=== PATIENT | female | born 1970 | race Caucasian/White ===

== ENCOUNTER 2020-04-18 20:40 | Emergency (ER) | payer MEDICAID, SELFPAY ==
[2020-04-18 21:07] VITALS: BP 117/76; PULSE 69; RESP 18; TEMP 36.4; O2SAT 98; BMI 29.6
--- NOTE | 2020-04-18 23:27 | W.ED.EXTPRO ---
HPI - Extremity Problem General: Chief complaint: Extremity Injury, Lower Stated complaint: SORES ON FEET Time Seen by Provider: 04/18/20 23:11 Source: patient Mode of arrival: ambulatory Limitations: no limitations History of Present Illness: HPI Narrative: 50-year-old female states she is homeless and walks a lot. She states that she has chronic wounds to her feet from walking. States that the painful rates pain a 4 out of 10. She denies any other complaints. She states she is concerned they may be infected. She has had a slight drainage from them. Denies any worsening improving factors. Associated symptoms: Deny chest pain, fever(s) or rash Review of Systems Const: Denies: fever(s), chills, body aches or change in appetite Eyes: Denies: blurry vision or eye discomfort ENMT: Denies: throat pain or dental pain Card: Denies: chest pain Resp: Denies: dyspnea GI: Denies: abdominal pain, nausea, vomiting or diarrhea : Denies: dysuria Musc: Denies: neck pain or back pain Skin/Breast: Denies: rash Neuro: Denies: headache(s) Psych: Denies: depression Xander/Lymph: Denies: easy bruising All/Imm: Denies: urticaria Physical Exam Const: COMMON NORMALS: no acute distress, patient oriented x3 and healthy appearing HENMT: COMMON NORMALS: normocephalic and atraumatic HEAD & SCALP: normocephalic and atraumatic Eye: COMMON NORMALS: Equal, round and reactive pupils present and EOMs intact bilaterally PUPIL: Yes Equal, round and reactive pupils present Neck/C-Spine: COMMON NORMALS: full ROM and supple Chest: COMMONS NORMALS: normal inspection of the chest and normal palpation of entire chest wall Resp: COMMON NORMALS: normal respiratory effort, No retractions, No use of accessory muscles and clear to auscultation bilaterally AUSCULTATION: clear to auscultation bilaterally Cardio: COMMON NORMALS: regular rate, regular rhythm and No murmurs present (Cardio) RATE: regular rate RHYTHM: regular rhythm GI: COMMON NORMALS: Normal to inspection, nondistended, normoactive bowel sounds present, Soft to palpation, non-tender and no masses PALPATION: Yes Soft to palpation Extremity: COMMON NORMALS: full ROM NARRATIVE EXTREMITY EXAM: Chronic appearing wounds to bilateral feet no signs of severe infection may be a mild cellulitis Neuro: COMMON NORMALS: patient oriented x3, moves all extremities and no focal motor deficits Psych: COMMON NORMALS: mental status grossly normal, Normal thought process present and cooperative THOUGHT PROCESS: Normal thought process present Skin: COMMON NORMALS: no rashes or lesions noted and no wounds GENERAL SKIN EXAM: no rashes or lesions noted Course Vital Signs: Vital signs: Vital Signs Temperature 97.5 F L 04/18/20 21:07 Pulse Rate 69 04/18/20 23:35 Respiratory Rate 18 04/18/20 21:07 Blood Pressure 117/76 04/18/20 21:07 Pulse Oximetry 98 04/18/20 21:07 MDM - Extremity (Nontraumatic) MDM Narrative: Medical decision making narrative: Patient presents with chronic wounds of her feet. She may have a mild cellulitis but no signs of any serious infection. We will place her on Levaquin. She is to follow-up with wound care. She has no signs of osteomyelitis. Lab Data: Labs: Lab Results 04/18/20 Range/Units 23:59 WBC 3.5 L (4.0-10.0) 10^3/ uL RBC 4.52 (4.1-5.3) 10^6/u L Hgb 13.9 (11.5-15.3) g/dL Hct 44.1 (37.0-47.0) % MCV 97.6 (81-99) fL MCH 30.8 (28.0-34.0) pg MCHC 31.5 (30.0-36.0) g/dL RDW 12.6 (12.1-15.1) % Plt Count 130 (130-400) 10^3/c mm MPV 11.0 H (7.4-10.4) fL Neut % (Auto) 50.2 % Lymph % (Auto) 38.9 % Daniels % (Auto) 8.3 % Eos % (Auto) 1.4 % Baso % (Auto) 0.9 % Neut # (Auto) 1.76 L (1.8-7.7) 10^3/u L Lymph # (Auto) 1.4 (0.8-4.8) 10^3/u L Daniels # (Auto) 0.3 (0.2-0.9) 10^3/u L Eos # (Auto) 0.1 (0.0-0.8) 10^3/u L Baso # (Auto) 0.0 (0.0-0.1) 10^3/u L Nucleated RBC % (a uto) 0 % Nucleated RBCs # 0.0 /100WBC Discharge Plan Discharge Patient Disposition: Home Clinical Impression: Chronic wound of extremity Condition: Stable Prescriptions: New clindamycin HCl 300 mg capsule 300 mg PO TID 7 Days Qty: 21 RF: 0 levofloxacin 750 mg tablet 750 mg PO DAILY 7 Days RF: 0 Discharge Orders: Discharge ED (Routine); Ordered 04/19/20 Ordered By: Elisabet Martin Discharge Diet: Advance as tolerated Discharge Activity: Resume usual activity Patient Instructions: Wound Care (General) Coding Level of Care Code ED Scroll Shear Operator for Herve Fwjessy Exam Comprehensive
[2020-04-18 23:35] VITALS: PULSE 69
[2020-04-19 00:07] LABS: Basophils % 0.9 %; Eosinophils # 0.1 10^3/uL (0.0-0.8); Eosinophils % 1.4 %; Hematocrit 44.1 % (37.0-47.0); Hemoglobin 13.9 g/dL (11.5-15.3); Lymphocytes # 1.4 10^3/uL (0.8-4.8); Lymphocytes % 38.9 %; Mean Corpuscular HGB Conc 31.5 g/dL (30.0-36.0); Mean Corpuscular Hemoglobin 30.8 pg (28.0-34.0); Mean Corpuscular Volume 97.6 fL (81-99); Monocytes # 0.3 10^3/uL (0.2-0.9); Monocytes % 8.3 %; Neutrophils # 1.76 10^3/uL (1.8-7.7); Neutrophils % 50.2 %; Nucleated Red Blood Cells % 0 %; Platelet Count 130 10^3/cmm (130-400); Red Blood Count 4.52 10^6/uL (4.1-5.3); Red Cell Distribution Width 12.6 % (12.1-15.1); White Blood Count 3.5 10^3/uL (4.0-10.0)
[2020-04-19 00:59] VITALS: BP 119/78; PULSE 62; RESP 17; O2SAT 99
--- NOTE | 2020-04-21 11:37 | DCPLANNER ---
activities manager had message to schedule a follow up appointment for patient with Wound Care. activities manager called the Wound Care clinic, spoke with Barb, a follow up appointment was scheduled for Thursday, April 23, 2020 at 1:[address] Renteria. activities manager called phone number [phone] - not a working number, called [phone] - not in service, called [phone] - can not be completed. activities manager called the Wound Care clinic and cancelled appointment, patient could not be reached.
== END 2020-04-19 00:59 | disposition home or self-care (01) ==
PROVIDERS: Emergency Provider Emergency Medicine
DX: S91.302A Unspecified open wound, left foot, initial encounter (principal); S91.301A Unspecified open wound, right foot, initial encounter; X58.XXXA Exposure to other specified factors, initial encounter
CPT/HCPCS: 12345; 36415; 85025; 99281; 99282

== ENCOUNTER 2020-04-19 02:25 | Emergency (ER) | payer MEDICAID, SELFPAY ==
[2020-04-19 02:31] VITALS: BP 136/83; PULSE 80; RESP 18; TEMP 36.4; O2SAT 97; BMI 22.7
--- NOTE | 2020-04-19 02:50 | ED_ITS ---
HPI - Psych General: Chief Complaint: Psychiatric Symptoms Stated Complaint: MHE Time Seen by Provider: 04/19/20 02:42 Source: patient Mode of arrival: ambulatory Limitations: no limitations History of Present Illness: HPI Narrative: 50 female who is here with complaints of manic thoughts. I seen her earlier for chronic wounds on her feet. Patient is homeless states she walked to the soup rate and started having she states manic thoughts. She denies any suicidal homicidal thoughts. Patient is demanding to speak to psychiatrist and will not give me the full history Associated symptoms: Deny depression Review of Systems Const: Denies: fever(s), chills, body aches or change in appetite Eyes: Denies: blurry vision or eye discomfort ENMT: Denies: throat pain or dental pain Card: Denies: chest pain Resp: Denies: dyspnea GI: Denies: abdominal pain, nausea, vomiting or diarrhea : Denies: dysuria Musc: Denies: neck pain or back pain Skin/Breast: Denies: rash Neuro: Denies: headache(s) Psych: Denies: depression Xander/Lymph: Denies: easy bruising All/Imm: Denies: urticaria Physical Exam Const: COMMON NORMALS: no acute distress, patient oriented x3 and healthy appearing HENMT: COMMON NORMALS: normocephalic and atraumatic HEAD & SCALP: normocephalic and atraumatic Eye: COMMON NORMALS: Equal, round and reactive pupils present and EOMs intact bilaterally PUPIL: Yes Equal, round and reactive pupils present Neck/C-Spine: COMMON NORMALS: full ROM and supple Chest: COMMONS NORMALS: normal inspection of the chest and normal palpation of entire chest wall Resp: COMMON NORMALS: normal respiratory effort, No retractions, No use of accessory muscles and clear to auscultation bilaterally AUSCULTATION: clear to auscultation bilaterally Cardio: COMMON NORMALS: regular rate, regular rhythm and No murmurs present (Cardio) RATE: regular rate RHYTHM: regular rhythm GI: COMMON NORMALS: Normal to inspection, nondistended, normoactive bowel sounds present, Soft to palpation, non-tender and no masses PALPATION: Yes Soft to palpation Extremity: COMMON NORMALS: normal to inspection and full ROM Neuro: COMMON NORMALS: patient oriented x3, moves all extremities and no focal motor deficits Psych: COMMON NORMALS: mental status grossly normal, Normal thought process present and cooperative THOUGHT PROCESS: Normal thought process present Skin: COMMON NORMALS: no rashes or lesions noted and no wounds GENERAL SKIN EXAM: no rashes or lesions noted MDM - Psych MDM Narrative: Medical decision making narrative: Patient presents here with depression stating she has had manic thoughts. I had her evaluated by psychiatrist Dr. Velez. I spoke to him and he states that she does not meet inpatient criteria. She has no SI or HI. I told patient this and will discharge her. Discharge Plan Discharge Patient Disposition: Home Clinical Impression: Depression Qualifiers: Depression Type: unspecified Qualified Code(s): F32.9 - Major depressive disorder, single episode, unspecified Condition: Stable Prescriptions: No Action clindamycin HCl 300 mg capsule 300 mg PO TID 7 Days Qty: 21 RF: 0 levofloxacin 750 mg tablet 750 mg PO DAILY 7 Days RF: 0 Discharge Orders: Discharge ED (Routine); Ordered 04/19/20 Ordered By: Elisabet Martin Discharge Diet: Advance as tolerated Discharge Activity: Resume usual activity Patient Instructions: Depression (ED) Coding Level of Care Code ED Recycling Operations Manager for Herve Fwd Exam Comprehensive
[2020-04-19 03:23] VITALS: BP 132/88; PULSE 78; RESP 18; O2SAT 96
== END 2020-04-19 03:29 | disposition home or self-care (01) ==
PROVIDERS: Emergency Provider Emergency Medicine
DX: F32.9 Major depressive disorder, single episode, unspecified (principal)
CPT/HCPCS: 12345; 99284